=== PATIENT | male | born 1995 | race Caucasian/White ===

== ENCOUNTER 2018-11-11 23:41 | Emergency (ER) | payer BC ==
[~2018-11-11] VITALS: Ht 172.7 cm; Wt 118.4 kg
[2018-11-11 23:48] VITALS: Ht 172.7 cm; Wt 118.4 kg
[2018-11-12 00:27] LABS: BASOPHIL % 0.5 % (0-2); PLATELET COUNT 273 x10^3mcL (130-400); RED CELL DISTRIBUTION WIDTH 12.7 % (11.5-14.5)
[2018-11-12 00:46] LABS: CALCIUM 8.9 mg/dL (8.5-10.1); CARBON DIOXIDE 26.6 mmol/L (21-32); CHLORIDE SERUM 103 mmol/L (98-107); CREATININE SERUM 0.6 mg/dL (0.7-1.3); GFR1 > 60 mL/min; GLUCOSE SERUM 93 mg/dL (74-106); POTASSIUM SERUM 3.7 mmol/L (3.5-5.1); SODIUM SERUM 138 mmol/L (136-145)
[2018-11-12 00:51] LABS: ALBUMIN 3.8 g/dL (3.4-5.0); ALKALINE PHOSPHATASE 72 U/L (46-116); ALT/SGPT 200 U/L (16-63); AST/SGOT 74 U/L (15-37); BILIRUBIN TOTAL 1.5 mg/dL (0.20-1.00); TOTAL PROTEIN, SERUM 7.4 g/dL (6.4-8.2)
[2018-11-12 02:15] VITALS: BP 147/94
== END 2018-11-12 02:15 | disposition home or self-care (01) ==
LOC: ED 23:41
PROVIDERS: Emergency Medicine
DX: F43.9 Reaction to severe stress, unspecified (principal); G44.209 Tension-type headache, unspecified, not intractable; E78.00 Pure hypercholesterolemia, unspecified
CPT/HCPCS: 36415; J1885; Q0162

== ENCOUNTER 2019-02-19 12:22 | Emergency (ER) | payer BC ==
[~2019-02-19] VITALS: Ht 172.7 cm; Wt 115.8 kg
[2019-02-19 12:31] VITALS: Ht 172.7 cm; Wt 115.8 kg
[2019-02-19 15:04] VITALS: BP 132/87
== END 2019-02-19 15:04 | disposition home or self-care (01) ==
LOC: ED 12:22
DX: F41.9 Anxiety disorder, unspecified (principal); E78.00 Pure hypercholesterolemia, unspecified
CPT/HCPCS: J2060; Q0162

== ENCOUNTER 2019-02-21 09:56 | Emergency (ER) | payer BC ==
[~2019-02-21] VITALS: Ht 172.7 cm; Wt 115.7 kg
[2019-02-21 10:35] VITALS: BP 121/86; Ht 172.7 cm; Wt 115.7 kg
== END 2019-02-21 11:35 | disposition home or self-care (01) ==
LOC: ED 09:56
DX: K21.9 Gastro-esophageal reflux disease without esophagitis (principal); K62.5 Hemorrhage of anus and rectum; E78.00 Pure hypercholesterolemia, unspecified

== ENCOUNTER 2019-03-05 18:12 | Emergency (ER) | payer BC ==
[~2019-03-05] VITALS: Ht 172.7 cm; Wt 110.7 kg
[2019-03-05 18:15] VITALS: Ht 172.7 cm; Wt 110.7 kg
[2019-03-05 20:20] LABS: BASOPHIL % 0.4 % (0-2); PLATELET COUNT 347 x10^3mcL (130-400); RED CELL DISTRIBUTION WIDTH 13.3 % (11.5-14.5)
[2019-03-05 20:24] LABS: CALCIUM 9.7 mg/dL (8.5-10.1); CARBON DIOXIDE 26.6 mmol/L (21-32); CHLORIDE SERUM 102 mmol/L (98-107); CREATININE SERUM 0.8 mg/dL (0.7-1.3); GFR1 > 60 mL/min; GLUCOSE SERUM 84 mg/dL (74-106); POTASSIUM SERUM 4.1 mmol/L (3.5-5.1); SODIUM SERUM 140 mmol/L (136-145)
[2019-03-05 20:29] LABS: ALBUMIN 4.2 g/dL (3.4-5.0); ALKALINE PHOSPHATASE 72 U/L (46-116); ALT/SGPT 223 U/L (16-63); AST/SGOT 71 U/L (15-37); BILIRUBIN TOTAL 1.1 mg/dL (0.20-1.00); LIPASE 85 IU/L (73-393); TOTAL PROTEIN, SERUM 7.8 g/dL (6.4-8.2)
[2019-03-05 22:44] VITALS: BP 128/71
== END 2019-03-05 22:44 | disposition home or self-care (01) ==
LOC: ED 18:12
PROVIDERS: Specialist
DX: R07.89 Other chest pain (principal); R10.13 Epigastric pain; F41.9 Anxiety disorder, unspecified; E78.00 Pure hypercholesterolemia, unspecified; R53.1 Weakness; R42 Dizziness and giddiness; R20.0 Anesthesia of skin; Z98.890 Other specified postprocedural states
CPT/HCPCS: 36415; Q0092

== ENCOUNTER 2019-03-13 18:12 | Emergency (ER) | payer BC ==
[~2019-03-13] VITALS: Ht 172.7 cm; Wt 107.7 kg
[2019-03-13 18:16] VITALS: Ht 172.7 cm; Wt 107.7 kg
[2019-03-13 21:21] VITALS: BP 132/75
== END 2019-03-13 21:21 | disposition home or self-care (01) ==
LOC: ED 18:12
DX: M54.5 Low back pain (principal); R68.2 Dry mouth, unspecified; E78.00 Pure hypercholesterolemia, unspecified

== ENCOUNTER 2019-04-18 19:45 | Emergency (ER) | payer BC ==
[~2019-04-18] VITALS: Ht 172.7 cm; Wt 103.4 kg
[2019-04-18 21:04] LABS: CALCIUM 8.9 mg/dL (8.5-10.1); CARBON DIOXIDE 25.9 mmol/L (21-32); CHLORIDE SERUM 106 mmol/L (98-107); CREATININE SERUM 0.7 mg/dL (0.7-1.3); GFR1 > 60 mL/min; GLUCOSE SERUM 86 mg/dL (74-106); POTASSIUM SERUM 3.8 mmol/L (3.5-5.1); SODIUM SERUM 143 mmol/L (136-145)
[2019-04-18 21:10] LABS: ALKALINE PHOSPHATASE 79 U/L (46-116); ALT/SGPT 53 U/L (16-63); AMYLASE 25 U/L (25-115); AST/SGOT 22 U/L (15-37); BILIRUBIN TOTAL 1.3 mg/dL (0.20-1.00); LIPASE 69 IU/L (73-393); TOTAL PROTEIN, SERUM 7.8 g/dL (6.4-8.2)
[2019-04-18 21:27] LABS: BASOPHIL % 0.3 % (0-2); PLATELET COUNT 299 x10^3mcL (130-400); RED CELL DISTRIBUTION WIDTH 13.4 % (11.5-14.5)
[2019-04-18 22:11] VITALS: BP 145/86
== END 2019-04-18 22:11 | disposition home or self-care (01) ==
LOC: ED 19:45
PROVIDERS: Emergency Medicine
DX: R10.9 Unspecified abdominal pain (principal); R07.89 Other chest pain; R11.0 Nausea; E78.00 Pure hypercholesterolemia, unspecified; F41.9 Anxiety disorder, unspecified; Z98.890 Other specified postprocedural states
CPT/HCPCS: 36415; J1885

== ENCOUNTER 2019-04-22 15:07 | Emergency (ER) | payer BC ==
[~2019-04-22] VITALS: Ht 165.1 cm; Wt 102.5 kg
[2019-04-22 18:16] VITALS: BP 135/80
== END 2019-04-22 18:17 | disposition home or self-care (01) ==
LOC: ED 15:07
DX: R10.13 Epigastric pain (principal); E78.00 Pure hypercholesterolemia, unspecified; F41.9 Anxiety disorder, unspecified
CPT/HCPCS: Q0162

== ENCOUNTER 2019-05-02 05:16 | Emergency (ER) | payer BC ==
[~2019-05-02] VITALS: Ht 172.7 cm; Wt 100.7 kg
[2019-05-02 05:20] VITALS: Ht 172.7 cm; Wt 100.7 kg
[2019-05-02 07:02] LABS: CALCIUM 8.8 mg/dL (8.5-10.1); CHLORIDE SERUM 108 mmol/L (98-107); CREATININE SERUM 0.8 mg/dL (0.7-1.3); GFR1 > 60 mL/min; GLUCOSE SERUM 95 mg/dL (74-106); POTASSIUM SERUM 4.5 mmol/L (3.5-5.1); SODIUM SERUM 143 mmol/L (136-145)
[2019-05-02 07:06] LABS: ALBUMIN 3.8 g/dL (3.4-5.0); ALKALINE PHOSPHATASE 74 U/L (46-116); ALT/SGPT 30 U/L (16-63); AST/SGOT 16 U/L (15-37); BILIRUBIN TOTAL 0.88 mg/dL (0.20-1.00); LIPASE 106 IU/L (73-393); TOTAL PROTEIN, SERUM 7.3 g/dL (6.4-8.2)
[2019-05-02 07:13] LABS: BASOPHIL % 0.2 % (0-2); PLATELET COUNT 251 x10^3mcL (130-400); RED CELL DISTRIBUTION WIDTH 13.4 % (11.5-14.5)
[2019-05-02 07:59] VITALS: BP 129/75
== END 2019-05-02 07:59 | disposition home or self-care (01) ==
LOC: ED 05:16
PROVIDERS: Emergency Medicine
DX: K29.70 Gastritis, unspecified, without bleeding (principal); E78.00 Pure hypercholesterolemia, unspecified; F41.9 Anxiety disorder, unspecified
CPT/HCPCS: J2270; J2405; J7030

== ENCOUNTER 2019-09-21 20:35 | Emergency (ER) | payer MEDICAID ==
[~2019-09-21] VITALS: Ht 172.7 cm; Wt 114.8 kg
[2019-09-21 20:41] VITALS: Ht 172.7 cm; Wt 114.8 kg
[2019-09-21 21:18] LABS: BASOPHIL % 0.2 % (0-2); PLATELET COUNT 297 x10^3mcL (130-400); RED CELL DISTRIBUTION WIDTH 13.2 % (11.5-14.5)
[2019-09-21 22:00] LABS: CALCIUM 8.9 mg/dL (8.5-10.1); CARBON DIOXIDE 26.9 mmol/L (21-32); CHLORIDE SERUM 102 mmol/L (98-107); CREATININE SERUM 0.9 mg/dL (0.7-1.3); GFR1 > 60 mL/min; GLUCOSE SERUM 108 mg/dL (74-106); POTASSIUM SERUM 4.8 mmol/L (3.5-5.1); SODIUM SERUM 139 mmol/L (136-145)
[2019-09-21 22:05] LABS: ALBUMIN 3.7 g/dL (3.4-5.0); ALKALINE PHOSPHATASE 81 U/L (46-116); ALT/SGPT 104 U/L (16-63); AST/SGOT 35 U/L (15-37)
[2019-09-21 22:18] LABS: TOTAL PROTEIN, SERUM 8.4 g/dL (6.4-8.2)
[2019-09-21 22:41] LABS: microscopic required? NO
[2019-09-21 22:54] LABS: urine erythrocyte NEGATIVE (NEGATIVE)
[2019-09-21 23:19] LABS: AMPHETAMINE QUAL UR NONE DETECTED (See below)
[2019-09-22 02:29] VITALS: BP 127/75
== END 2019-09-22 02:33 | disposition home or self-care (01) ==
LOC: ED 20:35
PROVIDERS: Emergency Medicine
DX: J18.9 Pneumonia, unspecified organism (principal); R53.1 Weakness; E78.00 Pure hypercholesterolemia, unspecified; R20.0 Anesthesia of skin; R51 Headache; M54.2 Cervicalgia; R11.0 Nausea
CPT/HCPCS: 87804; J0696; J1885; Q0092

== ENCOUNTER 2020-01-10 23:18 | Emergency (ER) | payer SELFPAY ==
[~2020-01-10] VITALS: Ht 172.7 cm; Wt 118.8 kg
[2020-01-10 23:27] VITALS: Ht 172.7 cm; Wt 118.8 kg
[2020-01-11 00:21] LABS: BASOPHIL % 0.4 % (0-2); PLATELET COUNT 253 x10^3mcL (130-400); RED CELL DISTRIBUTION WIDTH 13.7 % (11.5-14.5)
[2020-01-11 00:22] LABS: CALCIUM 8.7 mg/dL (8.5-10.1); CARBON DIOXIDE 26.8 mmol/L (21-32); CHLORIDE SERUM 108 mmol/L (98-107); CREATININE SERUM 0.8 mg/dL (0.7-1.3); GFR1 > 60 mL/min; GLUCOSE SERUM 107 mg/dL (74-106); POTASSIUM SERUM 4.6 mmol/L (3.5-5.1); SODIUM SERUM 143 mmol/L (136-145)
[2020-01-11 01:00] VITALS: BP 138/81
== END 2020-01-11 01:00 | disposition home or self-care (01) ==
LOC: ED 23:18
PROVIDERS: Emergency Medicine
DX: R07.89 Other chest pain (principal); E78.00 Pure hypercholesterolemia, unspecified
CPT/HCPCS: 36415; Q0092

== ENCOUNTER 2020-08-10 22:26 | Emergency (ER) | payer SELFPAY ==
[~2020-08-10] VITALS: Ht 172.7 cm; Wt 127.0 kg
[2020-08-10 22:32] VITALS: Ht 172.7 cm; Wt 127.0 kg
[2020-08-11 00:20] LABS: CALCIUM 9.1 mg/dL (8.5-10.1); CARBON DIOXIDE 27.7 mmol/L (21-32); CHLORIDE SERUM 104 mmol/L (98-107); CREATININE SERUM 0.8 mg/dL (0.7-1.3); GFR1 > 60 mL/min; GLUCOSE SERUM 92 mg/dL (74-106); POTASSIUM SERUM 4.3 mmol/L (3.5-5.1); SODIUM SERUM 141 mmol/L (136-145)
[2020-08-11 00:25] LABS: ALBUMIN 4.2 g/dL (3.4-5.0); ALKALINE PHOSPHATASE 98 U/L (46-116); ALT/SGPT 202 U/L (16-63); AST/SGOT 78 U/L (15-37); BILIRUBIN TOTAL 0.8 mg/dL (0.20-1.00); TOTAL PROTEIN, SERUM 7.9 g/dL (6.4-8.2)
[2020-08-11 01:39] LABS: BASOPHIL % 0.3 % (0.2-1.5); PLATELET COUNT 288 x10^3mcL (152-348); RED CELL DISTRIBUTION WIDTH 13.3 % (12.1-16.2)
[2020-08-11 02:18] VITALS: BP 133/81
== END 2020-08-11 02:18 | disposition home or self-care (01) ==
LOC: ED 22:26
PROVIDERS: Emergency Medicine
DX: R07.89 Other chest pain (principal); E78.00 Pure hypercholesterolemia, unspecified